=== PATIENT | female | born 1965 | race Caucasian/White ===

== ENCOUNTER 2016-12-16 13:07 | Emergency (ER) | payer BC ==
--- NOTE | 2016-12-16 13:44 | ERNOTE ---
Lower Extremity HPI - Narrative Date of Service: 12/16/16 - General Lower Extremities Pain: leg: right Time Seen by Provider: 12/16/16 13:25 Source: patient, RN notes reviewed Exam Limitations: no limitations - Immun/Allergies/Home Medications Immunizations: IMMUNIZATION HX Immunizations Up to Date No History of Influenza Vaccine No Hx Pneumococcal Vaccination No Allergies/Adverse Reactions: Allergies Allergy/AdvReac Type Severity Reaction Status Date / Time Penicillins Allergy Hives Verified 12/16/16 13:24 Home Medications: HOME MEDICATIONS Aspirin [Aspirin Chewable] 81 mg PO DAILY 12/16/16 [Last Taken Unknown] Doxycycline Monohydrate 100 mg PO BID #20 tablet 12/16/16 [Last Taken Unknown] - History of Present Illness Narrative: 51 y/o female ambulatory to the ED for concerns about a possible DVT. She is having swelling and redness in her right leg. She has had superficial thrombophlebitis in the leg in the past. Her brother of a PE and both of her parents take anticoagulants. She has been taking 650 mg aspirin bid. Date (Duration): 12/12/16 Method of Injury: Reports: no apparent injury Prior Treament: Reports: similar symptoms before. Denies: recently seen Review of Systems - Review of Systems Constitutional: Absent: recent illness, fever, chills, malaise EYE: Present: no symptoms reported ENT: Present: no symptoms reported Respiratory: Absent: shortness of breath, cough Cardiology: Present: edema. Absent: chest pain, palpitations, claudication Gastrointestinal/Abdominal: Absent: nausea, abdominal pain Genitourinary: Present: no symptoms reported Musculoskeletal: Present: muscle pain. Absent: joint pain, joint swelling Skin: Present: change in color. Absent: rash, lesions, lumps Neurological: Absent: headache, dizziness/light-headedness, weakness, numbness, tingling Endocrine: Present: no symptoms reported Hematologic/Lymphatic: Absent: easy bruising, easy bleeding Psych: Present: no symptoms reported - Patient's Past Medical History Patient History - Medical: No pertinent hx Patient History - Cardiac/Respiratory: No pertinent hx Patient History - Cancer: No Hx of Cancer Patient History - Surgical Procedures: No surgical history Patient History - Other: None - Social History Living Situations: home Abuse History: No History of abuse Psych History: No pertinent hx Smoking Status: Never smoker Have you smoked in the past 12 months: No Do you dip or chew tobacco: No Alcohol Use: occasionally Drug Use: none - Immunizations Immunizations Up to Date: No Hx Pneumococcal Vaccination: No History of Influenza Vaccine: No Physical Exam - Physical Exam General Appearance: Present: wd/wn, alert, no apparent distress Neck: Present: normal inspection, nontender, supple Respiratory: Present: no respiratory distress, normal breath sounds, no accessory muscle use, lungs clear Cardiovascular/Chest: Present: regular rate, rhythm, no murmur, normal peripheral pulses Extremity Exam: Present: normal range of motion, extremity edema - mild edema to right lower leg and foot. Absent: calf tenderness, joint redness, joint swelling Neurological Exam: Present: alert, oriented, normal mood/affect, no motor/ sensory deficits Skin Exam: Present: warm/dry, other - Erythema and warm to right medial thigh, tender to palpation ED Progress - Vital Signs Patient's Vital Signs:: I have reviewed the patient's vital signs. Vital Signs: Vital Signs 12/16/16 13:17 Temperature 37.3 C Pulse Rate 75 Respiratory 15 Rate Blood Pressure 135/77 O2 Sat by Pulse 100 Oximetry - CT/Ultrasound CT/Ultrasound Narrative: US of right lower extremity negative for DVT but does show a clot in the greater saphenous vein. - Progress/Reassessment Chief Complaint: Lower Extremity Pain/ Injury Progress:: Unchanged Plan - Plan Plan: Patient to continue aspirin. Elevate leg whenever possible. Use warm moist heat. Doxycycline prescribed d/t the degree of redness extending up the medial thigh. Departure Clinical Impression: Superficial thrombophlebitis Qualifiers: Superficial thrombophlebitis-Involved body area: lower extremity Laterality: right Qualified Code(s): I80.01 - Phlebitis and thrombophlebitis of superficial vessels of right lower extremity - Departure Disposition: Home Follow Up Needed Condition: Good Instructions: Form - Excuse from Work, School, or Physical Activity, Phlebitis , [id number] Referrals: Nelida Cedillo MD [Primary Care Provider] - Prescriptions: Doxycycline Monohydrate 100 mg PO BID #20 tablet
[2016-12-16 14:16] VITALS: BP 138/81
== END 2016-12-16 14:45 | disposition home or self-care (01) ==
LOC: ER 13:07
DX: I80.01 Phlebitis and thrombophlebitis of superficial vessels of right lower extremity (principal)